=== PATIENT | female | born 1965 | race Caucasian/White ===

== ENCOUNTER 2017-01-05 18:40 | Inpatient (IN) | payer OTHER ==
[~2017-01-05] VITALS: Ht 157.5 cm; Wt 69.5 kg
[2017-01-05 21:10] LABS: HEMOGLOBIN 13.4 gm/dl (12.3-15.3); RED BLOOD COUNT 4.38 M/UL (4.00-5.10); WHITE BLOOD COUNT 19.4 K/UL (4.5-11.0)
[2017-01-05 21:27] LABS: BUN/CREATININE RATIO 8 (0-10)
[2017-01-06] MEDS ORDERED: CRESTOR10 MG PO (03:22)
[2017-01-06] MEDS ORDERED: NEURONTIN 400400 MG PO (03:23)
[2017-01-06] MEDS ORDERED: LANTUS100 UNIT/1 SQ (03:23)
[2017-01-06] MEDS ORDERED: GLUCOPHAGE850 MG PO (03:27)
[2017-01-06] MEDS ORDERED: TYLENOL 500 MG500 MG PO (03:27)
[2017-01-06] MEDS ORDERED: VITAMIN D50000 UNIT PO (03:28)
[2017-01-06 07:04] LABS: HEMOGLOBIN 11.9 gm/dl (12.3-15.3); WHITE BLOOD COUNT 15.1 K/UL (4.5-11.0)
[2017-01-06 07:07] LABS: RED BLOOD COUNT 3.93 M/UL (4.00-5.10)
[2017-01-06 07:12] LABS: BUN/CREATININE RATIO 10 (0-10)
[2017-01-07 04:55] LABS: HEMOGLOBIN 12.3 gm/dl (12.3-15.3); RED BLOOD COUNT 4.07 M/UL (4.00-5.10)
[2017-01-07 05:29] LABS: BUN/CREATININE RATIO 13 (0-10)
--- NOTE | 2017-01-07 12:14 | NUR ---
PATIENT BACK ON THE FLOOR FROM PERIPHERAL ANGIOGRAM, RIGHT GROIN SITE DRESSING DRY, CLEAN AND INTACT. PATIENT RESTING COMFORTABLY AND DENIES PAIN. VS WNL
[2017-01-08 04:31] LABS: HEMOGLOBIN 11.1 gm/dl (12.3-15.3); RED BLOOD COUNT 3.75 M/UL (4.00-5.10)
[2017-01-08 04:51] LABS: BUN/CREATININE RATIO 12 (0-10)
[2017-01-09 07:05] LABS: HEMOGLOBIN 11.5 gm/dl (12.3-15.3); RED BLOOD COUNT 3.82 M/UL (4.00-5.10)
[2017-01-09 07:22] LABS: BUN/CREATININE RATIO 10 (0-10)
[2017-01-10 06:04] LABS: HEMOGLOBIN 10.8 gm/dl (12.3-15.3); RED BLOOD COUNT 3.68 M/UL (4.00-5.10)
[2017-01-10 06:24] LABS: BUN/CREATININE RATIO 10 (0-10)
[2017-01-10] MEDS ORDERED: VITAMIN C 500500 MG PO (16:25)
[2017-01-10] MEDS ORDERED: ASPIRIN81 MG PO (16:26)
[2017-01-10] MEDS ORDERED: PLAVIX 75 MG TA75 MG PO (16:28)
[2017-01-10] MEDS ORDERED: LEVEMIR100 UNIT/1 SQ (16:29)
[2017-01-10] MEDS ORDERED: CRESTOR 10 MG T10 MG PO (16:30)
[2017-01-10] MEDS ORDERED: NOVOLOG100 UNIT/1 SQ (16:31)
[2017-01-10] MEDS ORDERED: VANCOCIN 125MG/2.5ML IV (16:32)
[2017-01-10] MEDS ORDERED: DAKIN'S SOLUTI500 ML EXT (16:51)
[2017-01-10] MEDS ORDERED: PERCOCET 5-3251 EACH PO (16:53)
[2017-04-25] MEDS ORDERED: ASPIRIN81 MG PO (05:49)
[2017-04-25] MEDS ORDERED: ELAVIL 25 MG TA25 MG PO (05:50)
[2017-04-25] MEDS ORDERED: LORTAB 5-325 M1 EACH PO (05:50)
[2017-04-25] MEDS ORDERED: NEURONTIN 400400 MG PO (05:50)
[2017-04-25] MEDS ORDERED: LISINOPRIL10 MG PO (05:51)
[2017-04-25] MEDS ORDERED: CRESTOR 10 MG T10 MG PO (05:51)
[2017-04-25] MEDS ORDERED: PLAVIX 75 MG TA75 MG PO (05:51)
[2017-04-25] MEDS ORDERED: VITAMIN C 500500 MG PO (05:52)
[2017-04-25] MEDS ORDERED: NOVOLOG FL100 UNIT/1 SQ (05:53)
[2017-04-25] MEDS ORDERED: LEVEMIR100 UNIT/1 SQ (05:54)
[2017-04-28] MEDS ORDERED: LOPRESSOR 25 MG25 MG PO (12:45)
[2017-04-28] MEDS ORDERED: LEVAQUIN500 MG PO (12:46)
[2017-04-28] MEDS ORDERED: NOVOLOG FL100 UNIT/1 SQ (12:58)
[2017-04-28] MEDS ORDERED: LEVEMIR IN100 UNITS/ SQ (13:00)
[2017-04-28] MEDS ORDERED: POVIDONE IODIN TP (13:05)
== END 2017-01-10 16:00 | disposition home health service (06) | DRG 270 ==
LOC: ER1 18:40 → MED SURG 4 22:30 → ZEROF 22:30 → MED SURG 4 01-06 00:42
PROVIDERS: Emergency Medicine; Family Medicine; Physician Assistant; Podiatrist Foot & Ankle Surgery; ADMIT Internal Medicine
PROC: 0JBQ0ZZ Excision of Right Foot Subcutaneous Tissue and Fascia, Open Approach (ICD-10-PCS; 2017-01-07)
PROC: 047J3DZ Dilation of Left External Iliac Artery with Intraluminal Device, Percutaneous Approach (ICD-10-PCS; 2017-01-07)
PROC: 047J3ZZ Dilation of Left External Iliac Artery, Percutaneous Approach (ICD-10-PCS; 2017-01-07)
PROC: B41D1ZZ Fluoroscopy of Aorta and Bilateral Lower Extremity Arteries using Low Osmolar Contrast (ICD-10-PCS; 2017-01-07)
PROC: 0Y6Q0Z1 Detachment at Left 1st Toe, High, Open Approach (ICD-10-PCS; principal; 2017-01-07 13:15)
PROC: 04CJ0ZZ Extirpation of Matter from Left External Iliac Artery, Open Approach (ICD-10-PCS; 2017-01-07 13:15)
PROC: 02HV33Z Insertion of Infusion Device into Superior Vena Cava, Percutaneous Approach (ICD-10-PCS; 2017-01-09)
PROC: B548ZZA Ultrasonography of Superior Vena Cava, Guidance (ICD-10-PCS; 2017-01-09)
DX: E11.52 Type 2 diabetes mellitus with diabetic peripheral angiopathy with gangrene (principal); A48.0 Gas gangrene; M86.172 Other acute osteomyelitis, left ankle and foot; L02.612 Cutaneous abscess of left foot; L02.611 Cutaneous abscess of right foot; I70.263 Atherosclerosis of native arteries of extremities with gangrene, bilateral legs; I70.92 Chronic total occlusion of artery of the extremities; E11.69 Type 2 diabetes mellitus with other specified complication; E11.621 Type 2 diabetes mellitus with foot ulcer; L03.032 Cellulitis of left toe; L03.031 Cellulitis of right toe; L97.512 Non-pressure chronic ulcer of other part of right foot with fat layer exposed; B95.62 Methicillin resistant Staphylococcus aureus infection as the cause of diseases classified elsewhere; E87.6 Hypokalemia; E78.5 Hyperlipidemia, unspecified; B35.1 Tinea unguium; L60.3 Nail dystrophy; F17.200 Nicotine dependence, unspecified, uncomplicated; Z91.19 Patient's noncompliance with other medical treatment and regimen; Z91.11 Patient's noncompliance with dietary regimen; Z98.62 Peripheral vascular angioplasty status; Z79.84 Long term (current) use of oral hypoglycemic drugs; Z79.1 Long term (current) use of non-steroidal anti-inflammatories (NSAID); Z79.4 Long term (current) use of insulin; Z79.899 Other long term (current) drug therapy; Z90.49 Acquired absence of other specified parts of digestive tract; Z98.890 Other specified postprocedural states; Z83.3 Family history of diabetes mellitus; Z82.3 Family history of stroke
CPT/HCPCS: 36415; 73630; 73718; 75630; 80048; 80053; 80061; 80202; 82962; 83036; 83735; 85025; 85027; 85347; 86140; 87040; 87070; 87077; 87186; 87205; 93005; 96374; 99284; C1725; C1757; C1876; J1335; J1644; J1650; J1885; J2250; J2270; J2795; J3010; J3370; J3480; J7030; J7040; J7050; J7070; J7120; Q9965

== ENCOUNTER 2017-02-04 06:29 | Outpatient (CLI) | payer OTHER ==
[~2017-02-04] VITALS: Ht 157.5 cm; Wt 70.3 kg
[~2017-02-04 06:29] MED LIST: ASPIRIN81 MG PO; CRESTOR 10 MG T10 MG PO; CRESTOR10 MG PO; DAKIN'S SOLUTI500 ML EXT; GLUCOPHAGE850 MG PO; LANTUS100 UNIT/1 SQ; LEVEMIR100 UNIT/1 SQ; NEURONTIN 400400 MG PO; NOVOLOG100 UNIT/1 SQ; PERCOCET 5-3251 EACH PO; PLAVIX 75 MG TA75 MG PO; TYLENOL 500 MG500 MG PO; VANCOCIN 125MG/2.5ML IV; VITAMIN C 500500 MG PO; VITAMIN D50000 UNIT PO
[2017-02-04] MEDS ORDERED: ELAVIL 25 MG TA25 MG PO (07:51)
[2017-02-04] MEDS ORDERED: LORTAB 10-3251 EACH PO (07:52)
[2017-02-04] MEDS ORDERED: LISINOPRIL10 MG PO (07:52)
[2017-02-04] MEDS ORDERED: IODINE TOP (07:54)
[2017-02-04 20:31] LABS: HEMOGLOBIN 10.2 gm/dl (12.3-15.3); RED BLOOD COUNT 3.46 M/UL (4.00-5.10); WHITE BLOOD COUNT 9.1 K/UL (4.5-11.0)
[2017-02-04 20:47] LABS: BUN/CREATININE RATIO 16 (0-10)
[2017-02-05 03:52] LABS: HEMOGLOBIN 10.6 gm/dl (12.3-15.3); RED BLOOD COUNT 3.64 M/UL (4.00-5.10); WHITE BLOOD COUNT 8.8 K/UL (4.5-11.0)
[2017-02-05 04:07] LABS: BUN/CREATININE RATIO 12 (0-10)
[2017-04-25] MEDS ORDERED: ASPIRIN81 MG PO (05:49)
[2017-04-25] MEDS ORDERED: ELAVIL 25 MG TA25 MG PO (05:50)
[2017-04-25] MEDS ORDERED: LORTAB 5-325 M1 EACH PO (05:50)
[2017-04-25] MEDS ORDERED: NEURONTIN 400400 MG PO (05:50)
[2017-04-25] MEDS ORDERED: CRESTOR 10 MG T10 MG PO (05:51)
[2017-04-25] MEDS ORDERED: PLAVIX 75 MG TA75 MG PO (05:51)
[2017-04-25] MEDS ORDERED: LISINOPRIL10 MG PO (05:51)
[2017-04-25] MEDS ORDERED: VITAMIN C 500500 MG PO (05:52)
[2017-04-25] MEDS ORDERED: NOVOLOG FL100 UNIT/1 SQ (05:53)
[2017-04-25] MEDS ORDERED: LEVEMIR100 UNIT/1 SQ (05:54)
[2017-04-28] MEDS ORDERED: LOPRESSOR 25 MG25 MG PO (12:45)
[2017-04-28] MEDS ORDERED: LEVAQUIN500 MG PO (12:46)
[2017-04-28] MEDS ORDERED: NOVOLOG FL100 UNIT/1 SQ (12:58)
[2017-04-28] MEDS ORDERED: LEVEMIR IN100 UNITS/ SQ (13:00)
[2017-04-28] MEDS ORDERED: POVIDONE IODIN TP (13:05)
== END 2017-02-05 14:20 | disposition home health service (06) ==
LOC: CATH 06:29 → CCU 06:29 → CATH 07:30 → CCU 12:32 → CATH 12:32 → CCU 02-05 14:20
PROVIDERS: Internal Medicine
DX: I70.235 Atherosclerosis of native arteries of right leg with ulceration of other part of foot (principal); L97.519 Non-pressure chronic ulcer of other part of right foot with unspecified severity; L02.611 Cutaneous abscess of right foot; Z95.820 Peripheral vascular angioplasty status with implants and grafts; E11.9 Type 2 diabetes mellitus without complications; I10 Essential (primary) hypertension; E78.5 Hyperlipidemia, unspecified; F17.210 Nicotine dependence, cigarettes, uncomplicated; Z98.890 Other specified postprocedural states; Z79.82 Long term (current) use of aspirin; Z79.02 Long term (current) use of antithrombotics/antiplatelets; Z79.4 Long term (current) use of insulin; Z79.891 Long term (current) use of opiate analgesic; Z79.84 Long term (current) use of oral hypoglycemic drugs; L03.032 Cellulitis of left toe; L03.031 Cellulitis of right toe; F41.8 Other specified anxiety disorders; E11.42 Type 2 diabetes mellitus with diabetic polyneuropathy; E11.621 Type 2 diabetes mellitus with foot ulcer; L97.429 Non-pressure chronic ulcer of left heel and midfoot with unspecified severity; L97.509 Non-pressure chronic ulcer of other part of unspecified foot with unspecified severity; I96 Gangrene, not elsewhere classified; M86.9 Osteomyelitis, unspecified; N28.1 Cyst of kidney, acquired; E55.9 Vitamin D deficiency, unspecified; Z87.898 Personal history of other specified conditions
CPT/HCPCS: 36415; 75710; 80048; 80202; 82962; 85027; 85347; 93005; 93926; C1769; C1887; G0378; J0171; J0461; J1200; J1644; J2250; J2720; J3010; J3370; J7030; J7040; J7070; Q9965

== ENCOUNTER → 2017-03-25 | Outpatient (CLI) | payer OTHER ==
[~2017-03-25] MED LIST changes: +ELAVIL 25 MG TA25 MG PO; +IODINE TOP; +LEVAQUIN500 MG PO; +LEVEMIR IN100 UNITS/ SQ; +LISINOPRIL10 MG PO; +LOPRESSOR 25 MG25 MG PO; +LORTAB 10-3251 EACH PO; +LORTAB 5-325 M1 EACH PO; +NOVOLOG FL100 UNIT/1 SQ; +POVIDONE IODIN TP
== END ==
LOC: US 11:00
DX: N19 Unspecified kidney failure (principal)